=== PATIENT | male | born 2000 | race Caucasian/White ===

== ENCOUNTER → 2022-04-23 | Outpatient (CLI) | payer BC ==
--- NOTE | 2022-04-24 01:22 | MR ---
EXAMINATION TYPE: MR brain wo con DATE OF EXAM: 04/23/2022 COMPARISON: None HISTORY: Headaches and tremors Multiplanar multiecho imaging of the brain with no contrast. Ventricles and sulci appear normal. There is no mass effect or midline shift. No sign of intracranial hemorrhage. No evidence of cerebral edema. Diffusion images show no evidence of an acute infarct. Th e brainstem appears normal. The rosen and white matter structures are fairly normal signal pattern. No evidence of cerebral edema. Cerebellum is intact. The corpus callosum appears intact. Sella turcica appears normal. No evidence of orbital mass. There are small mucous retention cysts in the maxillary sinuses. IMPRESSION: Negative MR scan of the brain.
== END | disposition home or self-care (01) ==
LOC: RADMRIMAIN 21:28
PROVIDERS: ATTEND Psychiatry & Neurology Neurology
DX: R25.1 Tremor, unspecified (principal); G43.001 Migraine without aura, not intractable, with status migrainosus
CPT/HCPCS: 70551